=== PATIENT | female | born 1980 | race Caucasian/White ===

== ENCOUNTER 2017-02-08 11:54 | Day surgery (SDC) | payer OTHER ==
[2017-02-08 12:23] VITALS: BP 116/78; PULSE 70; RESP 20; TEMP 98.1
[2017-02-08] MEDS ORDERED: ALPRAZolam 0.5 MG TAB PO STA (12:24)
--- NOTE | 2017-02-08 13:41 | US ---
ULTRASOUND GUIDED FNA THYROID BIOPSY: CLINICAL HISTORY: Right thyroid nodule FINDINGS: The procedure was explained to the patient. The risks, complications, benefits and alternatives were discussed and any questions were answered. Informed consent was obtained. Patient was placed supin e on the ultrasound table and prepped and draped in the usual sterile fashion. Utilizing a 25 gauge needle, five passes were made into the requested right thyroid nodule. Patient was stable throughout the procedure. Pathology is pending. All elements of maximal barrier technique were utilized. IMPRESSION: 1. Successful ultrasound guided FNA thyroid biopsy.
== END 2017-02-08 13:30 | disposition home or self-care (01) ==
LOC: RADPROMAIN 11:54
PROVIDERS: ATTEND Surgery
DX: E07.9 Disorder of thyroid, unspecified (principal); E04.1 Nontoxic single thyroid nodule; R13.10 Dysphagia, unspecified
CPT/HCPCS: 10022; 76942; 88173; 88305